=== PATIENT | female | born 1985 | race Caucasian/White ===

== ENCOUNTER 2017-10-13 10:02 | Emergency (ER) | payer SELFPAY ==
[2017-10-13 10:07] VITALS: BMI 19.5
[2017-10-13] MEDS ORDERED: Sodium Chloride 0.9% 1,000 ML IV STA (10:33)
--- NOTE | 2017-10-13 10:44 | ED PDOC ---
HPI: Fever Fever Onset Was: 10/12/17 What Antipyretic Given Prior To Arrival: Acetaminophen Recent Sick Contacts: No Symptoms Associated With Fever: denies: Vomiting, Diarrhea Against Medical Advice - AMA Patient Left Against Medical Advice: The patient declines admission to the hospital and wishes to leave the Emergency Department. This action is against my medical advice. This decision was made with informed refusal. The patient was told that admission to the hospital is necessary. Explanation of the reasons why were discussed. The risks of leaving were explained to the patient and include, but are not limited to, worsening of known or currently unknown conditions, permanent disability and from undiagnosed or untreated conditions. The patient has the capacity to make this informed decision and understands my explanation of the current medical problem and risks of leaving. The patient voluntarily accepts these risks and signed an AMA form documenting our conversation. The patient was given the opportunity to ask questions and reconsider. The patient was encouraged to return to the Emergency Department at any time for further care. Past Medical History Reviewed: Historical Data, Nursing Documentation, Vital Signs Vital Signs: Last Vital Signs Temp 99 F 10/13/17 12:35 Pulse 89 10/13/17 12:35 Resp 19 10/13/17 12:35 BP 103/62 10/13/17 12:35 Pulse Ox 99 10/13/17 13:16 - Medical History PMH: No Chronic Diseases - Surgical History Surgical History: No Surg Hx - Family History Family History: States: Unknown Family Hx - Social History Current smoker - smoking cessation education provided: No Ex-Smoker (has not smoked in the last 12 months): No Alcohol: None Drugs: Denies - Allergies Allergies/Adverse Reactions: Allergies Allergy/AdvReac Type Severity Reaction Status Date / Time No Known Allergies Allergy Verified 10/13/17 10:36 Review of Systems ROS Statement: Except As Marked, All Systems Reviewed And Found Negative Constitutional: Positive for: Fever (Tmax 101) ENT: Negative for: Ear Pain, Throat Pain Respiratory: Negative for: Cough Gastrointestinal: Negative for: Nausea, Vomiting, Abdominal Pain, Diarrhea Genitourinary Female: Positive for: Other (No symptoms) Physical Exam - Reviewed Nursing Documentation Reviewed: Yes Vital Signs Reviewed: Yes - Physical Exam Appears: Positive for: Non-toxic, No Acute Distress Head Exam: Positive for: ATRAUMATIC, NORMAL INSPECTION, NORMOCEPHALIC Skin: Positive for: Normal Color, Warm, Dry. Negative for: Rash Eye Exam: Positive for: Normal appearance, EOMI, PERRL. Negative for: Nystagmus ENT: Positive for: Normal ENT Inspection. Negative for: Nasal Congestion, Tonsillar Exudate, Tonsillar Swelling Neck: Positive for: Normal, Painless ROM, Supple Cardiovascular/Chest: Positive for: Chest Non Tender, Tachycardia (w/ regular rhythm). Negative for: Gallop, Murmur Respiratory: Positive for: Normal Breath Sounds. Negative for: Rales, Rhonchi, Wheezing Gastrointestinal/Abdominal: Positive for: Bowel Sounds, Soft, Tenderness (left upper and left lower quadrant tenderness). Negative for: Mass, Guarding, Rebound Back: Positive for: Normal Inspection. Negative for: L CVA Tenderness, R CVA Tenderness Extremity: Positive for: Normal ROM. Negative for: Tenderness, Calf Tenderness , Deformity, Swelling Neurologic/Psych: Positive for: Alert, Oriented, Gait - Laboratory Results Result Diagrams: 10/13/17 11:00 10/13/17 11:00 - ECG O2 Sat by Pulse Oximetry: 99 (RA) Pulse Ox Interpretation: Normal Medical Decision Making Medical Decision Makin Initial Impression 32 year old female presenting with fever and abdominal pain Differentials: Colitis, Viral Syndrome Initial Plan: * VBG Shock Panel * CMP * Lipase * Upreg * Udip * CBC * PTT * Prothrombin Time * Motrin Tab 600 mg PO * NS 1000 ml IV 1000 mls/hr * Tylenol 650 mg PO * Blood Culture * Influenza A B * Urinalysis * Reevaluation 1232 PROCEDURE: CT Abdomen and Pelvis without intravenous contrast HISTORY: L sided pain COMPARISON: None. TECHNIQUE: Technique. Contrast dose: Radiation dose: Total exam DLP = mGy-cm. This CT exam was performed using one or more of the following dose reduction techniques: Automated exposure control, adjustment of the mA and/or kV according to patient size, and/or use of iterative reconstruction technique. FINDINGS: LOWER THORAX: Unremarkable. LIVER: Unremarkable. No gross lesion or ductal dilatation. GALLBLADDER AND BILE DUCTS: Unremarkable. PANCREAS: Unremarkable. No gross lesion or ductal dilatation. SPLEEN: Unremarkable. ADRENALS: Unremarkable. No mass. KIDNEYS AND URETERS: Unremarkable. No hydronephrosis. No solid mass. VASCULATURE: Unremarkable. No aortic aneurysm. BOWEL: Unremarkable. No obstruction. No gross mural thickening. APPENDIX: Unremarkable. Normal appendix. PERITONEUM: Unremarkable. No free fluid. No free air. LYMPH NODES: Unremarkable. No enlarged lymph nodes. BLADDER: Unremarkable. REPRODUCTIVE: Bilateral ovarian cyst, Right Guard and left with small amount of free fluid in the pelvis BONES: No acute fracture. OTHER FINDINGS: None. IMPRESSION: As above.. 1316 Patient states that they will likely sign out AMA if there are no life threatening issues and follow up in the morning. This patient is choosing to leave against medical advice. The EP has personally explained to the pt that choosing to do so may result in permanent bodily harm or . The EP discussed at great length that without further evaluation and monitoring there may be unforeseen circumstances and/or deterioration causing permanent bodily harm or as a result of their choice. The pt verbalized these risks back to the physician in laymans terms. The pt is alert, oriented, and shows the mental capacity to make clear decisions regarding the pts health care at this time. The pt continues to wish to leave against medical advice. In light of the pts decision to leave AMA, follow-up has been arranged and the pt is aware of the importance of following up as instructed. The pt has been advised that they should return to the ED immediately if they change their mind at any time, or if thier condition begins to change or worsen in any way. Documented by Priya Velez acting as a scribe for Taina Dial MD. All medical record entries made by the Scribe were at my direction and personally dictated by me. I have reviewed the chart and agree that the record accurately reflects my personal performance of the history, physical exam, medical decision making, and the department course for this patient. I have also personally directed, reviewed, and agree with the discharge instructions and disposition. Disposition - Clinical Impression Clinical Impression: Fever - Patient ED Disposition Is Patient to be Admitted: No Counseled Patient/Family Regarding: Studies Performed - Disposition Disposition: Against Medical Advice Disposition Time: 13:30 Condition: UNKNOWN Forms: [facility] (Honduran) - POA Present On Arrival: None History of Present Illness History Of Present Illness: 32 year old female is sent in from [facility] for fever (tmax 101) which began yesterday. Patient states that she took half a strength tylenol yesterday and today. Denies nausea, vomiting, left sided abdominal pain, diarrhea, ear pain, sore throat, coughing, symptoms. Of note: Patient came from [facility] October 10. FAMILY PROVIDER,NO
[2017-10-13 11:21] LABS: BASO % 0.2 % (0.0-2.0); EOS % 0.1 % (0.0-4.0); HEMOGLOBIN 12.4 g/dL (12.0-16.0); LYMPH # 0.2 K/uL (1.0-4.3); MEAN CELL VOLUME 95.5 fl (81.0-99.0); MEAN CORPUSCULAR HEMOGLOBIN 32.2 pg (27.0-31.0); MEAN CORPUSCULAR HGB CONC 33.7 g/dL (33.0-37.0); MEAN PLATELET VOLUME 8.5 fl (7.2-11.7); MONO # 0.5 K/uL (0.0-0.8); MONO % 12.7 % (0.0-10.0); NEUT # 3.3 K/uL (1.8-7.0); PLATELET COUNT 186 K/uL (130-400); RBC 3.84 Mil/uL (3.80-5.20); WHITE BLOOD COUNT 4.1 K/uL (4.8-10.8)
[2017-10-13 11:22] LABS: ALB/GLOB RATIO 1.4 (1.0-2.1); ALBUMIN 4.1 g/dL (3.5-5.0); ALT/SGPT 21 U/L (9-52); AST/SGOT 18 U/L (14-36); BLOOD UREA NITROGEN 7 mg/dl (7-17); CALCIUM 8.6 mg/dL (8.4-10.2); GFR AFRICAN-AMERICAN > 60; GFR NON-AFRICAN AMERICAN > 60; LIPASE 51 U/L (23-300)
[2017-10-13] MEDS ORDERED: Potassium Chloride 20 mEq ER Tab PO STA (11:25)
[2017-10-13 11:30] LABS: VENOUS BLOOD GAS BASE EXCESS -0.3 mmol/L (0.0-2.0); VENOUS BLOOD GAS PCO2 38 mmHg (40-60); VENOUS BLOOD GAS PO2 21 mm/Hg (30-55); VENOUS BLOOD PH 7.41 (7.32-7.43)
[2017-10-13 11:32] LABS: INR 1.4 (0.9-1.2); PARTIAL THROMBOPLASTIN TIME 34.4 Seconds (25.6-37.1); PROTHROMBIN TIME 15.2 Seconds (9.8-13.1)
[2017-10-13 11:33] LABS: SQUAMOUS EPITHIAL 1 /hpf (0-5); URINE BILIRUBIN NEGATIVE (NEGATIVE); URINE BLOOD NEGATIVE (NEGATIVE); URINE CLARITY CLEAR (Clear); URINE COLOR YELLOW (YELLOW); URINE GLUCOSE (UA) NEG (Normal); URINE LEUKOCYTE ESTERASE NEG Leu/uL (Negative); URINE PROTEIN NEGATIVE (NEGATIVE); URINE UROBILINOGEN 0.2-1.0 mg/dL (0.2-1.0)
[2017-10-13] MEDS ORDERED: Sodium Chloride 0.9% 50 ML IV ONE (11:42)
[2017-10-13] MEDS ORDERED: Iohexol 300 100 ML IJ ONE (11:42)
[2017-10-13 12:24] LABS: BANDS 2 % (0-2); BASOPHIL 1 % (0-2); LYMPHOCYTE 5 % (20-50); MONOCYTE 5 % (0-10); NEUTROPHIL 87 % (42-75); TOTAL CELLS COUNTED 100
[2017-10-13 12:25] LABS: PLATELET ESTIMATE NORMAL (NORMAL)
[2017-10-13] MEDS ORDERED: Potassium Chloride 20 mEq ER Tab PO ONE (12:28)
--- NOTE | 2017-10-13 12:34 | CT ---
PROCEDURE: CT Abdomen and Pelvis without intravenous contrast HISTORY: L sided pain COMPARISON: None. TECHNIQUE: Technique. Contrast dose: Radiation dose: Total exam DLP = mGy-cm. This CT exam was performed using one or more of the following dose reduction techniques: Automated exposure control, adjustment of the mA and/or kV according to patient size, and/or use of iterative reconstruction technique. FINDINGS: LOWER THORAX: Unremarkable. LIVER: Unremarkable. No gross lesion or ductal dilatation. GALLBLADDER AND BILE DUCTS: Unremarkable. PANCREAS: Unremarkable. No gross lesion or ductal dilatation. SPLEEN: Unremarkable. ADRENALS: Unremarkable. No mass. KIDNEYS AND URETERS: Unremarkable. No hydronephrosis. No solid mass. VASCULATURE: Unremarkable. No aortic aneurysm. BOWEL: Unremarkable. No obstruction. No gross mural thickening. APPENDIX: Unremarkable. Normal appendix. PERITONEUM: Unremarkable. No free fluid. No free air. LYMPH NODES: Unremarkable. No enlarged lymph nodes. BLADDER: Unremarkable. REPRODUCTIVE: Bilateral ovarian cyst, Right Guard and left with small amount of free fluid in the pelvis BONES: No acute fracture. OTHER FINDINGS: None. IMPRESSION: As above..
[2017-10-13 14:27] VITALS: BP 121/70; PULSE 62; RESP 16; TEMP 98.1
[2017-10-17 13:02] VITALS: O2SAT 99
== END 2017-10-13 14:21 | disposition left against medical advice (07) ==
LOC: H.ER 10:02
DX: R50.9 Fever, unspecified (principal)
CPT/HCPCS: 74177; 80053; 81003; 81025; 82803; 83690; 85025; 85610; 85730; 87040; 87804; 96360; 99284; J7030; Q9967